=== PATIENT | male | born 1930 | race Caucasian/White ===

== ENCOUNTER → 2018-12-30 | Outpatient (CLI) | payer MEDICARE, OTHER ==
--- NOTE | 2018-12-30 12:32 | Diagnostic Imaging Report ---
EXAMINATION: Right shoulder 10:52 p.m. INDICATION: Chronic shoulder pain. Four views were obtained. There are no prior studies for comparison. FINDINGS: There is no fracture, dislocation or acute bony abnormality evident. There is slight widening of the acromioclavicular joint, however. Whether this is a developmental variant or whether this is secondary to a mild acromioclavicular separation is not certain. If further evaluation is desired, then a comparison view of the left shoulder would be recommended. 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 The soft tissues are unremarkable. IMPRESSION: 1. There is no evidence for an acute bony abnormality. 2. The slight widening of the acromioclavicular joint does raise the question of mild acromioclavicular separation. Recommendations as above. 3. If there is clinical concern regarding injury to the rotator cuff or labrum, then a conventional arthrogram or a CT arthrogram would be recommended. The patient does have a defibrillator device in place and this would preclude further evaluation by MRI. Dictated by: Dictated on workstation # [id number]
== END ==
LOC: RAD FS 10:30
PROVIDERS: ATTEND Nurse Practitioner
DX: M19.011 Primary osteoarthritis, right shoulder (principal)
CPT/HCPCS: 73030

== ENCOUNTER → 2019-01-26 | Outpatient (CLI) | payer MEDICARE, OTHER ==
[~2019-01-26] MED LIST: CATHETER FLUSH 10 ML SYR IV PRN; HOLD METFORMIN - RECEIVED CONTRAST 20 ML VIAL IV SCH; IOHEXOL 350 MG/ML 100 ML (OMNIPAQUE 350) VIAL IV ONE; NS 50 ML (IVPB) BAG IV ONE
--- NOTE | 2019-01-26 11:05 | Diagnostic Imaging Report ---
PROCEDURE: CT chest with contrast only. TECHNIQUE: Multiple contiguous axial images were obtained through the chest after administration of intravenous contrast. INDICATION: Pulmonary nodule, followup. COMPARISON: No prior studies are available for comparison. FINDINGS: Left chest wall cardiac pacemaker is noted. There are numerous collateral vessels over the right chest with collateral flow identified within the azygos system. This can be seen with subclavian and SVC stenosis/occlusion. No axillary, hilar or mediastinal lymphadenopathy is seen. No pericardial or pleural fluid is identified. Vague semisolid density in the left apex anteriorly measures 8 mm, image #22. There is some scarring in the right upper lobe. A nodule adjacent to the major fissure in the right lower lobe is seen measuring 5 mm, image #67. No other parenchymal abnormalities are identified. Upper abdomen is unremarkable. IMPRESSION: 1. Numerous collateral vessels in the right chest, suggestive of a subclavian or SVC stenosis/occlusion. 2. Bilateral lung nodular densities. Patient's prior imaging is not available for direct comparison. Continued followup is recommended with a repeat study in approximately six months to confirm stability. Dictated by: Dictated on workstation # [id number]
== END ==
LOC: RAD FS 09:45
PROVIDERS: ATTEND Family Medicine
DX: J98.4 Other disorders of lung (principal); R91.1 Solitary pulmonary nodule; Z95.0 Presence of cardiac pacemaker
CPT/HCPCS: 71260

== ENCOUNTER → 2019-09-18 | Outpatient (CLI) | payer MEDICARE | LOC: CARD 10:43 | PROVIDERS: ATTEND Family Medicine | DX: I51.89 Other ill-defined heart diseases (principal); I08.2 Rheumatic disorders of both aortic and tricuspid valves; R94.30 Abnormal result of cardiovascular function study, unspecified | CPT/HCPCS: 93306 ==

== ENCOUNTER → 2019-10-21 | Outpatient (CLI) | payer MEDICARE ==
[~2019-10-21] VITALS: Ht 177 cm; Wt 84.0 kg
[~2019-10-21] MED LIST changes: -HOLD METFORMIN - RECEIVED CONTRAST 20 ML VIAL IV SCH; -IOHEXOL 350 MG/ML 100 ML (OMNIPAQUE 350) VIAL IV ONE; -NS 50 ML (IVPB) BAG IV ONE; +REGADENOSON 0.4 MG/5 ML SYR (LEXISCAN) IV ONE
[2019-10-21 10:22] VITALS: BP 123/74
--- NOTE | 2019-10-21 23:35 | STRESS TEST ---
DATE OF SERVICE: 10/21/2019 LEXISCAN MYOVIEW STRESS TEST REPORT REFERRING PHYSICIAN: Dr. Francisco Samuels. Baseline heart rate is 81, baseline blood pressure 123/74. Baseline EKG is sinus rhythm with no ischemic changes. In summary, the patient received 10.51 mCi of technetium-99 Myoview and the resting images were obtained. Then, the patient received 0.4 mg of Lexiscan followed by 31.1 mCi of technetium-99 Myoview. Throughout the test, there were no EKG changes. The resting and stress images were reviewed and compared in the short axis, horizontal long axis, and vertical long axis views. Review of the images showed decreased uptake involving the whole inferior wall, inferolateral wall, inferoseptum and anteroseptum with no significant reversibility. SSS is 31. SDS 0. TID value 1.09. On the gated images, the left ventricle appeared to be dilated with end diastolic volume 127 mL. Diffuse left ventricular hypokinesia, more pronounced at the inferior wall. Calculated ejection fraction 39%. CONCLUSION: 1. The patient tolerated Lexiscan well. 2. Fixed defect involving the whole inferior wall, inferoseptum and inferolateral wall. 3. Dilated left ventricle with diffuse left ventricular hypokinesia, more pronounced at the inferior wall. Calculated ejection fraction 39%. Job ID: [id number] DocumentID: [id number] Dictated Date: 10/21/2019 17:09:05 Litigation Coordinator Date: 10/21/2019 23:33:49 Dictated By: BERNICE SOFIA MD
== END ==
LOC: CARD 08:15
PROVIDERS: ATTEND Internal Medicine Cardiovascular Disease
DX: I08.2 Rheumatic disorders of both aortic and tricuspid valves (principal); I10 Essential (primary) hypertension; I25.10 Atherosclerotic heart disease of native coronary artery without angina pectoris; R93.1 Abnormal findings on diagnostic imaging of heart and coronary circulation; Z95.0 Presence of cardiac pacemaker
CPT/HCPCS: 78452; 93017

== ENCOUNTER → 2020-01-13 | Outpatient (CLI) | payer MEDICARE ==
[~2020-01-13] MED LIST changes: +HOLD METFORMIN - RECEIVED CONTRAST 20 ML VIAL IV SCH; +IOHEXOL 350 MG/ML 100 ML (OMNIPAQUE 350) VIAL IV ONE; +NS 100 ML (IVPB) BAG IV ONE; -REGADENOSON 0.4 MG/5 ML SYR (LEXISCAN) IV ONE
[2020-01-13 10:14] LABS: ALBUMIN 4.1 GM/DL (3.2-4.5); BILIRUBIN,TOTAL 0.7 MG/DL (0.1-1.0); CALCIUM 9.2 MG/DL (8.5-10.1); CREATININE SERUM 1.19 MG/DL (0.60-1.30); POTASSIUM 4.9 MMOL/L (3.6-5.0); TOTAL PROTEIN 6.8 GM/DL (6.4-8.2)
--- NOTE | 2020-01-13 11:35 | Diagnostic Imaging Report ---
PROCEDURE: CT chest with contrast only. TECHNIQUE: Multiple contiguous axial images were obtained through the chest after administration of intravenous contrast. Auto Exposure Controls were utilized during the CT exam to meet ALARA standards for radiation dose reduction. INDICATION: Pulmonary nodule. FINDINGS: The previous CT chest exam of 01/26/2019 noted small nodules in both lungs. This included a nodule adjacent to the major fissure of the right lower lobe. That nodule measured 5 mm in size. That nodule is again identified on this study now measures 5.3 mm (image 91 of 175). There is also a vague semisolid density in the left upper lobe. This measured 8 mm. That finding is again evident on this study and unchanged as well (image 29 of 175). There is no other parenchymal lung nodule identified. The chronic pulmonary changes evident on the prior study are again visualized and no different. The heart is borderline enlarged but stable in size when compared to the prior exam. The coronary artery calcifications and coronary artery stents seen previously are again evident and no different. The left-sided defibrillator device seen on the prior exam is also unchanged. The aorta is not abnormally dilated and there is no sign of dissection. There is no defect within the pulmonary arteries to indicate a pulmonary embolus. The collateral vessels within the thorax seen previously are again evident and no different. There is no mediastinal or hilar adenopathy. The thyroid gland is generally unremarkable. The sections through the upper abdomen failed to show any sign of an acute abnormality. 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 The bone windows are unremarkable for fracture or for destructive lesion. IMPRESSION: 1. The semisolid density in the left upper lobe and the nodule in the right lower lobe seen previously appears stable. Most likely findings are benign. A follow-up exam in one year would be recommended for continued evaluation. 2. There is borderline cardiomegaly and coronary artery disease, but there is no sign of an acute cardiopulmonary abnormality. 3. The numerous collateral vessels within the chest seen previously are again evident. Dictated by: Dictated on workstation # [id number]
== END ==
LOC: LAB FS 08:38
PROVIDERS: ATTEND Family Medicine
DX: D69.6 Thrombocytopenia, unspecified (principal); I10 Essential (primary) hypertension; R91.1 Solitary pulmonary nodule
CPT/HCPCS: 36415; 71260; 80053

== ENCOUNTER → 2021-03-06 | Outpatient (CLI) | payer MEDICARE | LOC: CARD 14:00 | PROVIDERS: ATTEND Internal Medicine Cardiovascular Disease | DX: I10 Essential (primary) hypertension (principal); I08.0 Rheumatic disorders of both mitral and aortic valves | CPT/HCPCS: 93306 ==